=== PATIENT | male | born 1975 | race Caucasian/White ===

== ENCOUNTER → 2017-08-29 | Outpatient (CLI) | payer BC ==
--- NOTE | 2017-08-29 14:30 | RADIOLOGY REPORT (SQ) ---
EXAM DESCRIPTION: CT ABD/PELVIS NO ORAL OR IV COMPLETED DATE/TIME: 08/29/2017 10:19 am REASON FOR STUDY: HEMATURIA (R31.29) R31.29 OTHER MICROSCOPIC HEMATURIA COMPARISON: None. TECHNIQUE: CT scan of the abdomen and pelvis performed without intravenous or oral contrast. Images reviewed with lung, soft tissue, and bone windows. Reconstructed coronal and sagittal MPR images revi ewed. All images stored on PACS. All CT scanners at this facility use dose modulation, iterative reconstruction, and/or weight based d osing when appropriate to reduce radiation dose to as low as reasonably achievable (ALARA). [facility]: Dose Right [facility]: CareDose [facility]: Dose Right [facility]: Teradose 4D [facility]: BrickTrends RADIATION DOSE: CT Rad equipment meets quality standard of care and radiation dose reduction techniq ues were employed. CTDIvol: 11.8 mGy. DLP: 665 mGy-cm.mGy. LIMITATIONS: None. FINDINGS: LOWER CHEST: No significant findings. No nodules or infiltrates. NON-CONTRASTED LIVER, SPLEEN, ADRENALS: Evaluation limited by lack of IV contrast. No identified sign ificant masses. PANCREAS: Irregular low-attenuation lesion in the head of the pancreas, measuring 1.7 cm (axial serie s 2, image 31). This extends into the uncinate process with maximum measurement of 0.8 x 1.8 cm (axi al series 2, image 33). No peripancreatic inflammatory changes. GALLBLADDER: No identified stones by CT criteria. No inflammatory changes to suggest cholecystitis. RIGHT KIDNEY AND URETER: No suspicious masses. Assessment limited by lack of IV contrast. No signif icant calcifications. No hydronephrosis or hydroureter. LEFT KIDNEY AND URETER: 1.2 cm low-attenuation cortical lesion. No suspicious masses. Assessment renteria ited by lack of IV contrast. 2 mm calyceal calculus. No hydronephrosis or hydroureter. AORTA AND RETROPERITONEUM: No aneurysm. No retroperitoneal masses or adenopathy. BOWEL AND PERITONEAL CAVITY: No obvious masses or inflammatory changes. No free fluid. APPENDIX: Normal. PELVIS, BLADDER, AND ABDOMINAL WALL:No abnormal masses. No free fluid. Bladder normal. BONES: No significant findings. OTHER: No other significant finding. IMPRESSION: 1. 2 MM NONOBSTRUCTING CALYCEAL CALCULUS IN THE LEFT KIDNEY. 1.2 CM LOW-ATTENUATION CORTICAL LESION IN THE LEFT KIDNEY, PROBABLY A CORTICAL CYST. 2. IRREGULAR LOW-ATTENUATION LESION IN THE HEAD OF THE PANCREAS EXTENDING INTO THE UNCINATE PROCESS. RECOMMEND FOLLOW-UP WITH ULTRASOUND OF THE ABDOMEN, ALTHOUGH THIS AREA MAY BE DIFFICULT TO VISUALIZE DUE TO ITS LOCATION. IF ULTRASOUND IS NOT CLEARLY DIAGNOSTIC, THEN MRI OF THE PANCREAS WILL LIKELY BE NECESSARY. 3. NO OTHER SIGNIFICANT OR ACUTE PROCESS IN THE ABDOMEN OR PELVIS. COMMENT: Quality ID # [id number]: Final reports with documentation of one or more dose reduction techniques (e.g., Automated exposure control, adjustment of the mA and/or kV according to patient size, use of iterative reconstruction technique) TECHNICAL DOCUMENTATION: JOB ID: [id number] [employer]- All Rights Reserved Reading location - IP/workstation name: [id number]
== END ==
LOC: RAD 09:43
PROVIDERS: ATTEND Urology
DX: N20.0 Calculus of kidney (principal); R31.29 Other microscopic hematuria
CPT/HCPCS: 74176

== ENCOUNTER → 2017-09-26 | Outpatient (CLI) | payer BC ==
--- NOTE | 2017-09-26 10:31 | RADIOLOGY REPORT (SQ) ---
EXAM DESCRIPTION: U/S ABDOMEN COMPLETE W/O DOP COMPLETED DATE/TIME: 09/26/2017 10:12 am REASON FOR STUDY: ABNORMAL FINDINGS ON DIAGNOSTIC IMAGING OF BODY STRUCTURES R93.8 ABNORMAL FINDING S ON DIAGNOSTIC IMAGING OF BODY STRUCT COMPARISON: CT abdomen and pelvis examination dated 08/29/2017. TECHNIQUE: Dynamic and static grayscale images acquired of the abdomen and recorded on PACS. Additio nal selected color Doppler and spectral images recorded. LIMITATIONS: None. FINDINGS: PANCREAS: The low attenuated irregular lesion identified in the head of the pancreas exte nding into the uncinate process on the CT examination is not visualized sonographically. LIVER: Fatty liver. The liver measures 17.0 cm, upper limits of normal. LIVER VASCULATURE: Normal directional flow of the main portal vein and hepatic veins. GALLBLADDER: Small amount of gallbladder sludge. The gallbladder wall measures 2.0 mm, normal wall t hickness. No pericholecystic fluid. ULTRASOUND-DETECTED MARIE'S SIGN: Negative. INTRAHEPATIC DUCTS AND COMMON DUCT: CBD measures 3.5 mm in diameter, normal. The intrahepatic ducts normal caliber. No filling defects. INFERIOR VENA CAVA: Normal flow. AORTA: No aneurysm. RIGHT KIDNEY: The right kidney measures 12.6 cm, normal size. Normal echogenicity. No solid or lama spicious masses. No hydronephrosis. No calcifications. LEFT KIDNEY: The left kidney measures 12 point 4 cm in length, normal size. Normal echogenicity. A well-circumscribed echogenic lesion in the upper pole of the kidney common this finding correlates with the CT examination dated 08/29/2017. Considerations for this finding includes an angiommyolipoma . A small nonobstructing calculus is also identified. SPLEEN: The spleen measures 10.9 cm, normal size. No solid masses. PERITONEAL AND PLEURAL SPACES: No ascites or effusions. OTHER: No other significant finding. IMPRESSION: 1 The previously demonstrated low attenuated irregular area in the head of the pancreas extending to the uncinate process on the CT examination dated 08/29/2017 is not visualized sonographic ally. This may represent a benign finding. Please see original CT abdomen and pelvis report concerni ng recommendations. 2. Fatty liver. 3 Small amount of gallbladder sludge. 4 A well-circumscribed hyperechoic left renal lesion, considerations for this finding includes an ang iomyolipoma. TECHNICAL DOCUMENTATION: JOB ID: [id number] [employer]- All Rights Reserved Reading location - IP/workstation name: [email or web address]
== END ==
LOC: RAD 08:52
PROVIDERS: ATTEND Physician Assistant Medical
DX: N28.9 Disorder of kidney and ureter, unspecified (principal); K76.0 Fatty (change of) liver, not elsewhere classified
CPT/HCPCS: 76700